=== PATIENT | female | born 1950 | race Caucasian/White ===

== ENCOUNTER 2017-01-10 19:40 | Emergency (ER) | payer OTHER ==
[~2017-01-10] VITALS: Ht 167.6 cm; Wt 112.9 kg
[~2017-01-10 19:40] MED LIST: COLC0.6T51 PO; COR12.5 PO; FELO10TA PO; FERR325T30 PO; HUM10VIA7 SQ; LEVO300T6 PO; LOSA100T11 PO; SERT100T PO; ZOLP10TA2 PO
--- NOTE | 2017-01-10 19:40 | NUR ---
Patient to ER bed 08 to gown for evaluation. Side rails up. Report given to carolina.
[2017-01-10 19:45] VITALS: BP 132/68; PULSE 78; RESP 16; TEMP 98.4; O2SAT 96
--- NOTE | 2017-01-10 19:56 | NUR ---
Pt in bed 8 with c/o low back pain Dr Chilel aware.
--- NOTE | 2017-01-10 20:19 | NUR ---
ER at bedside examining patient.
[2017-01-10] MEDS ORDERED: HYDROcodone/ACETAMIN 5-325 MG TAB (NORCO/ VICODIN) PO ONE (20:30)
--- NOTE | 2017-01-10 20:35 | NUR ---
Medicated for pain as per MD ordered tolerated well.
[2017-01-10 21:45] VITALS: BP 128/62; PULSE 72; RESP 16; TEMP 98.2; O2SAT 97
--- NOTE | 2017-01-10 21:45 | NUR ---
Patient given written and verbal discharge instructions and verbalizes understanding. ER MD discussed with patient the results and treatment provided. Patient in stable condition. ID arm band removed. Rx of Ibuprofen, and Jackson given. Patient educated on pain management and to follow up with PMD. Pain Scale 0/10. Opportunity for questions provided and answered.
== END 2017-01-10 21:45 | disposition home or self-care (01) ==
LOC: SED 19:40
DX: S22.32XA Fracture of one rib, left side, initial encounter for closed fracture (principal); I10 Essential (primary) hypertension; E11.9 Type 2 diabetes mellitus without complications; F32.9 Major depressive disorder, single episode, unspecified; Z88.1 Allergy status to other antibiotic agents; Z79.4 Long term (current) use of insulin; W10.9XXA Fall (on) (from) unspecified stairs and steps, initial encounter; Y93.89 Activity, other specified; Y99.8 Other external cause status; Y92.89 Other specified places as the place of occurrence of the external cause
CPT/HCPCS: 71100; 99284

== ENCOUNTER 2017-03-07 14:33 | Emergency (ER) | payer OTHER ==
[~2017-03-07] VITALS: Ht 167.6 cm; Wt 107.0 kg
[2017-03-07 14:37] VITALS: BP 143/72; PULSE 77; RESP 17; TEMP 97.7; O2SAT 97
--- NOTE | 2017-03-07 14:42 | NUR ---
Ambulatory to bed 3, placed in gown for evaluation
--- NOTE | 2017-03-07 14:45 | NUR ---
ER at bedside examining patient.
--- NOTE | 2017-03-07 14:46 | NUR ---
PT PRESENTS TO ED C/O GENERALIZED WEAKNESS AND ABNORMAL LAB RESULTS. PT H/O PERITONIAL DIALYSIS. PT HAS APPEARS WEAK.
[2017-03-07 15:26] LABS: BASOPHILS % (AUTO) 0.2 % (0.0-2.0); EOSINOPHILS # (AUTO) 0.6 K/uL (0.0-0.4); EOSINOPHILS % (AUTO) 5.7 % (0.0-4.0); HEMATOCRIT 25.8 % (36-48); HEMOGLOBIN 8.7 g/dL (12.0-16.0); LYMPHOCYTES # (AUTO) 1.2 K/uL (1.0-5.5); LYMPHOCYTES % (AUTO) 12.6 % (20.5-51.5); MEAN CORPUSCULAR HEMOGLOBIN 32 pg (27-31); MEAN CORPUSCULAR HGB CONC 34 % (32-36); MEAN CORPUSCULAR VOLUME 94 fL (79.0-98.0); MONOCYTES # (AUTO) 0.9 K/uL (0.0-1.0); MONOCYTES % (AUTO) 9.2 % (1.7-9.3); NEUTROPHILS # (AUTO) 7.1 K/uL (1.8-7.7); NEUTROPHILS % (AUTO) 72.3 % (40.0-70.0); PLATELET COUNT (AUTO) 226 K/uL (130-430); RED BLOOD CELL COUNT(AUTO) 2.74 MIL/uL (4.2-6.2); RED CELL DISTRIBUTION WIDTH 15.3 % (9.0-15.0); WHITE BLOOD COUNT (AUTO) 9.8 K/uL (4.8-10.8)
--- NOTE | 2017-03-07 15:30 | NUR ---
PT TOLERATED MEDICATION WELL.
[2017-03-07 15:35] LABS: PROTHROMBIN TIME 10.7 SECS (9.5-12.5)
[2017-03-07 15:37] LABS: CREATININE 10.14 mg/dL (0.55-1.30); POTASSIUM 2.8 mmol/L (3.5-5.1)
[2017-03-07 15:43] LABS: ALBUMIN 2.4 g/dL (3.4-4.8); TOTAL BILIRUBIN 0.4 mg/dL (0.0-1.0); TOTAL PROTEIN, SERUM 7.3 g/dL (6.4-8.3)
[2017-03-07] MEDS ORDERED: POTASSIUM CHLORIDE 20 MEQ TAB.PRT.SR PO ONE (15:45)
[2017-03-07] MEDS ORDERED: FLUC100T41 PO (16:39)
[2017-03-07] MEDS ORDERED: PRAV40TA PO (16:39)
[2017-03-07] MEDS ORDERED: CLOB50SO2 TP (16:39)
[2017-03-07] MEDS ORDERED: GABA-529 PO (16:39)
[2017-03-07] MEDS ORDERED: IBUP-1480 PO (16:39)
[2017-03-07] MEDS ORDERED: PRO40 PO (16:39)
[2017-03-07] MEDS ORDERED: FLUT16SP16 NS (16:39)
--- NOTE | 2017-03-07 16:39 | NUR ---
SPOKE W/ . ARRANGEMENT FOR OUTPATIENT FOLLOWUP AND TX.
--- NOTE | 2017-03-07 16:40 | NUR ---
Medication reconciliation completed with information provided by patient. Any prior medication reconciliation on file was reviewed and corrected.
[2017-03-07 17:20] VITALS: BP 140/76; PULSE 80; RESP 16; TEMP 97.7; O2SAT 97
--- NOTE | 2017-03-07 17:20 | NUR ---
Patient given written and verbal discharge instructions and verbalizes understanding. ER MD discussed with patient the results and treatment provided. Given copies of tests performed in ER. Patient in stable condition. ID arm band removed. IV catheter removed intact and dressing applied, no active bleeding. Rx of ZOFRAN,SUCRAFATE given. Patient educated on pain management and to follow up with PMD. Pain Scale 0. Opportunity for questions provided and answered.
== END 2017-03-07 17:20 | disposition home or self-care (01) ==
LOC: SED 14:33
DX: D64.9 Anemia, unspecified (principal); E11.9 Type 2 diabetes mellitus without complications; I10 Essential (primary) hypertension; K21.9 Gastro-esophageal reflux disease without esophagitis; F32.9 Major depressive disorder, single episode, unspecified; Z88.5 Allergy status to narcotic agent; Z88.1 Allergy status to other antibiotic agents; Z79.4 Long term (current) use of insulin
CPT/HCPCS: 36415; 71010; 80053; 83605; 85025; 85610-TC; 85730-TC; 86886; 86900; 86901; 87040-TC; 93005; 99285

== ENCOUNTER 2017-12-21 11:41 | Inpatient (IN) | payer OTHER ==
[~2017-12-21] VITALS: Ht 167.6 cm; Wt 84.4 kg
[~2017-12-21 11:41] MED LIST changes: +CLOB50SO2 TP; -FELO10TA PO; -FERR325T30 PO; +FLUC100T41 PO; +FLUT16SP16 NS; +GABA-529 PO; +IBUP-1480 PO; -LOSA100T11 PO; +PRAV40TA PO; +PRO40 PO
[2017-12-21 11:57] VITALS: BP_SYST 117
[2017-12-21] MEDS ORDERED: NACL 0.9% 1,000 ML IV SCH (11:57)
[2017-12-21] MEDS ORDERED: ONDANSETRON HCL 4 MG/2 ML VIAL IVP ONE (12:00)
[2017-12-21 12:32] LABS: BASOPHILS % (AUTO) 0.4 % (0.0-2.0); EOSINOPHILS % (AUTO) 0.2 % (0.0-4.0); HEMATOCRIT 35.7 % (36-48); HEMOGLOBIN 12.5 g/dL (12.0-16.0); LYMPHOCYTES # (AUTO) 0.4 K/uL (1.0-5.5); MEAN CORPUSCULAR HEMOGLOBIN 33 pg (27-31); MEAN CORPUSCULAR HGB CONC 35 % (32-36); MEAN CORPUSCULAR VOLUME 94 fL (79.0-98.0); MONOCYTES # (AUTO) 0.5 K/uL (0.0-1.0); MONOCYTES % (AUTO) 7.9 % (1.7-9.3); NEUTROPHILS % (AUTO) 84.5 % (40.0-70.0); PLATELET COUNT (AUTO) 144 K/uL (130-430); RED BLOOD CELL COUNT(AUTO) 3.79 MIL/uL (4.2-6.2); RED CELL DISTRIBUTION WIDTH 13.5 % (9.0-15.0); WHITE BLOOD COUNT (AUTO) 5.9 K/uL (4.8-10.8)
[2017-12-21 13:00] LABS: ALBUMIN 2.8 g/dL (3.4-4.8); CALCIUM 11.2 mg/dL (8.4-11.0); TOTAL BILIRUBIN 0.4 mg/dL (0.0-1.0)
[2017-12-21 13:02] LABS: POTASSIUM 2.7 mmol/L (3.5-5.1)
[2017-12-21 13:03] LABS: CREATININE 8.41 mg/dL (0.55-1.30)
[2017-12-21] MEDS ORDERED: POTASSIUM CHLORIDE 20 MEQ TAB.PRT.SR PO ONE (13:45)
[2017-12-21] MEDS ORDERED: VANCOMYCIN HCL 1000 MG/VIAL IV ONE (14:29)
[2017-12-21] MEDS ORDERED: VANCOMYCIN HCL 1,000 MG in NS 250 ML IV ONE (14:30)
[2017-12-21] MEDS ORDERED: POTA8TAB4 PO (14:50)
[2017-12-21] MEDS ORDERED: FOLI0.8T2 PO (14:50)
[2017-12-21 15:10] VITALS: BP_SYST 129
[2017-12-21 15:13] VITALS: BP_SYST 129
[2017-12-21 15:36] VITALS: BP_SYST 129
[2017-12-21] MEDS ORDERED: ONDANSETRON HCL 4 MG/2 ML VIAL IVP PRN (15:45)
[2017-12-21] MEDS ORDERED: DEXTROSE 50% JECT 50 ML DISP.SYRIN IVP PRN (15:45)
[2017-12-21] MEDS ORDERED: INSULIN REGULAR, HUMAN 100 UNITS/ML, 10 ML VIAL (novoLIN R) SUBCUT PRN (15:45)
[2017-12-21] MEDS ORDERED: cloNIDine HCL 0.1 MG TABLET PO PRN (16:00)
[2017-12-21] MEDS ORDERED: MECLIZINE HCL 25 MG TABLET (ANITVERT) PO ONE (16:00)
[2017-12-21] MEDS ORDERED: ACETAMINOPHEN 325 MG TABLET PO PRN (16:00)
[2017-12-21 16:29] LABS: BILIRUBIN,URINE NEGATIVE (NEGATIVE); BLOOD, URINE 2+ (NEGATIVE); CLARITY/URINE CLOUDY (CLEAR); COLOR,URINE YELLOW (YELLOW); GLUCOSE,URINE TRACE (NEGATIVE); KETONES,URINE TRACE (NEGATIVE); LEUKOCYTE ESTERASE ,URINE TRACE (NEGATIVE); NITRITE, URINE NEGATIVE (NEGATIVE); PH,URINE 5.5 (5.0-8.0); PROTEIN URINE 1+ (NEGATIVE); UROBILINOGEN,URINE 0.2 (0.2-1.0)
[2017-12-21 16:44] LABS: BACTERIA,URINE MODERATE /HPF (None Seen); YEAST,URINE Moderate /HPF (None Seen)
[2017-12-21] MEDS: NACL 0.9% 1,000 ML IV SCH (17:34)
[2017-12-21 19:30] VITALS: BP_SYST 104
[2017-12-21] MEDS: MECLIZINE HCL 25 MG TABLET (ANITVERT) PO SCH (20:24)
[2017-12-22 00:29] VITALS: BP_SYST 119
[2017-12-22 06:08] LABS: BASOPHILS % (AUTO) 0.5 % (0.0-2.0); EOSINOPHILS % (AUTO) 0.1 % (0.0-4.0); HEMATOCRIT 31.7 % (36-48); HEMOGLOBIN 10.8 g/dL (12.0-16.0); LYMPHOCYTES # (AUTO) 0.5 K/uL (1.0-5.5); LYMPHOCYTES % (AUTO) 5.4 % (20.5-51.5); MEAN CORPUSCULAR HEMOGLOBIN 33 pg (27-31); MEAN CORPUSCULAR HGB CONC 34 % (32-36); MEAN CORPUSCULAR VOLUME 95 fL (79.0-98.0); MONOCYTES # (AUTO) 0.4 K/uL (0.0-1.0); MONOCYTES % (AUTO) 4.2 % (1.7-9.3); NEUTROPHILS # (AUTO) 7.6 K/uL (1.8-7.7); NEUTROPHILS % (AUTO) 89.8 % (40.0-70.0); PLATELET COUNT (AUTO) 119 K/uL (130-430); RED BLOOD CELL COUNT(AUTO) 3.33 MIL/uL (4.2-6.2); RED CELL DISTRIBUTION WIDTH 13.4 % (9.0-15.0); WHITE BLOOD COUNT (AUTO) 8.5 K/uL (4.8-10.8)
[2017-12-22] MEDS: LEVOTHYROXINE SODIUM 0.1 MG TABLET PO SCH (06:31)
[2017-12-22 06:43] LABS: THYROID STIMULATING HORMONE 0.1 uIu/mL (0.34-4.82)
[2017-12-22 08:00] VITALS: BP_SYST 91
[2017-12-22] MEDS: FOLIC ACID 1 MG TABLET PO SCH (08:25)
[2017-12-22] MEDS: PANTOPRAZOLE SODIUM 40 MG TAB PO SCH (08:25)
[2017-12-22] MEDS: MECLIZINE HCL 25 MG TABLET (ANITVERT) PO SCH ×3 (08:26→20:14)
[2017-12-22] MEDS: NACL 0.9% 1,000 ML IV SCH (08:29)
[2017-12-22 10:55] LABS: CALCIUM 10.2 mg/dL (8.4-11.0); CREATININE 7.56 mg/dL (0.55-1.30)
[2017-12-22 11:00] LABS: ALBUMIN 2.4 g/dL (3.4-4.8); TOTAL BILIRUBIN 0.3 mg/dL (0.0-1.0)
[2017-12-22] MEDS ORDERED: POTASSIUM CHLORIDE 20 MEQ TAB.PRT.SR PO ONE (12:00)
[2017-12-22 12:18] VITALS: BP_SYST 118
[2017-12-22] MEDS ORDERED: LEVOFLOXACIN 250 MG/D5W 50 ML IV ONE (13:30)
[2017-12-22 16:08] VITALS: BP_SYST 93
[2017-12-22 20:10] VITALS: BP_SYST 108
[2017-12-22 22:43] VITALS: BP_SYST 108
[2017-12-22] MEDS ORDERED: ZOLPIDEM TARTRATE 5 MG TABLET PO PRN (22:45)
[2017-12-23 00:44] VITALS: BP_SYST 106
[2017-12-23] MEDS: LEVOTHYROXINE SODIUM 0.1 MG TABLET PO SCH (06:13)
[2017-12-23 07:37] VITALS: BP_SYST 123
[2017-12-23] MEDS: PANTOPRAZOLE SODIUM 40 MG TAB PO SCH (08:13)
[2017-12-23] MEDS: FOLIC ACID 1 MG TABLET PO SCH (08:13)
[2017-12-23] MEDS: MECLIZINE HCL 25 MG TABLET (ANITVERT) PO SCH ×2 (08:13→14:47)
[2017-12-23] MEDS ORDERED: LEVOFLOXACIN 250 MG/D5W 50 ML IV SCH (09:00)
[2017-12-23 11:09] LABS: BASOPHILS % (AUTO) 0.7 % (0.0-2.0); EOSINOPHILS # (AUTO) 0.1 K/uL (0.0-0.4); EOSINOPHILS % (AUTO) 1.2 % (0.0-4.0); HEMATOCRIT 32.2 % (36-48); HEMOGLOBIN 10.9 g/dL (12.0-16.0); LYMPHOCYTES # (AUTO) 0.7 K/uL (1.0-5.5); LYMPHOCYTES % (AUTO) 13.3 % (20.5-51.5); MEAN CORPUSCULAR HEMOGLOBIN 32 pg (27-31); MEAN CORPUSCULAR HGB CONC 34 % (32-36); MEAN CORPUSCULAR VOLUME 95 fL (79.0-98.0); MONOCYTES # (AUTO) 0.3 K/uL (0.0-1.0); NEUTROPHILS # (AUTO) 4.2 K/uL (1.8-7.7); NEUTROPHILS % (AUTO) 78.8 % (40.0-70.0); PLATELET COUNT (AUTO) 121 K/uL (130-430); RED CELL DISTRIBUTION WIDTH 13.2 % (9.0-15.0); WHITE BLOOD COUNT (AUTO) 5.3 K/uL (4.8-10.8)
[2017-12-23 11:19] LABS: ALBUMIN 2.3 g/dL (3.4-4.8); CALCIUM 10.6 mg/dL (8.4-11.0); CREATININE 6.52 mg/dL (0.55-1.30); TOTAL BILIRUBIN 0.4 mg/dL (0.0-1.0)
[2017-12-23 11:26] LABS: POTASSIUM 2.9 mmol/L (3.5-5.1)
[2017-12-23] MEDS ORDERED: POTASSIUM CHLORIDE 20 MEQ TAB.PRT.SR PO ONE (11:45)
[2017-12-23 14:30] VITALS: BP_SYST 108
[2017-12-23] MEDS ORDERED: MECL12.584 PO (14:38)
[2017-12-23] MEDS ORDERED: MIDO5TAB20 PO (14:39)
[2017-12-23 16:12] VITALS: BP_SYST 95
== END 2017-12-23 16:25 | disposition home or self-care (01) | DRG 689 ==
LOC: SED 11:41 → STU 15:10 → SMU 12-23 11:54
PROVIDERS: ADMIT Internal Medicine Hospice and Palliative Medicine; ATTEND Internal Medicine Hospice and Palliative Medicine
PROC: 3E1M39Z Irrigation of Peritoneal Cavity using Dialysate, Percutaneous Approach (ICD-10-PCS; 2017-12-21)
PROC: 5A09357 Assistance with Respiratory Ventilation, Less than 24 Consecutive Hours, Continuous Positive Airway Pressure (ICD-10-PCS; principal; 2017-12-22)
DX: N39.0 Urinary tract infection, site not specified (principal); N18.6 End stage renal disease; C90.00 Multiple myeloma not having achieved remission; E11.22 Type 2 diabetes mellitus with diabetic chronic kidney disease; I12.0 Hypertensive chronic kidney disease with stage 5 chronic kidney disease or end stage renal disease; E87.6 Hypokalemia; R42 Dizziness and giddiness; F32.9 Major depressive disorder, single episode, unspecified; E03.9 Hypothyroidism, unspecified; K21.9 Gastro-esophageal reflux disease without esophagitis; R62.7 Adult failure to thrive; Z99.2 Dependence on renal dialysis; Z88.1 Allergy status to other antibiotic agents; Z88.6 Allergy status to analgesic agent; Z79.899 Other long term (current) drug therapy; Z79.4 Long term (current) use of insulin
CPT/HCPCS: 36415; 70450-TC; 71045; 80053; 81000-TC; 83605; 83735-TC; 83880; 84100-TC; 84443-TC; 84484; 85025; 85610-TC; 85730-TC; 87040-TC; 87086; 90935; 90937; 93005; 94660; 96361; 96365; 96366; 96375; 99285; J1815; J1956; J2405; J3370; J7050; J8597

== ENCOUNTER 2018-04-05 14:08 | Inpatient (IN) | payer OTHER ==
[~2018-04-05] VITALS: Ht 167.6 cm; Wt 83.1 kg
[2018-04-05 14:08] VITALS: BP_SYST 150
[~2018-04-05 14:08] MED LIST changes: -CLOB50SO2 TP; -COLC0.6T51 PO; -COR12.5 PO; -FLUC100T41 PO; -FLUT16SP16 NS; -GABA-529 PO; -HUM10VIA7 SQ; -IBUP-1480 PO; -LEVO300T6 PO; +MECL12.584 PO; +MIDO5TAB20 PO; -PRAV40TA PO; -PRO40 PO; -SERT100T PO; -ZOLP10TA2 PO
[2018-04-05 14:46] LABS: EOSINOPHILS # (AUTO) 0.1 K/uL (0.0-0.4); HEMATOCRIT 32.3 % (36-48); HEMOGLOBIN 11.1 g/dL (12.0-16.0); MONOCYTES # (AUTO) 0.8 K/uL (0.0-1.0)
[2018-04-05 14:49] LABS: BASOPHILS # (AUTO) 0.1 K/uL (0.0-0.2); BASOPHILS % (AUTO) 0.7 % (0.0-2.0); EOSINOPHILS % (AUTO) 0.9 % (0.0-4.0); LYMPHOCYTES # (AUTO) 0.7 K/uL (1.0-5.5); LYMPHOCYTES % (AUTO) 8.9 % (20.5-51.5); MEAN CORPUSCULAR HEMOGLOBIN 34 pg (27-31); MEAN CORPUSCULAR HGB CONC 35 % (32-36); MEAN CORPUSCULAR VOLUME 99 fL (79.0-98.0); MONOCYTES % (AUTO) 10.1 % (1.7-9.3); NEUTROPHILS # (AUTO) 6.4 K/uL (1.8-7.7); NEUTROPHILS % (AUTO) 79.4 % (40.0-70.0); PLATELET COUNT (AUTO) 235 K/uL (130-430); RED BLOOD CELL COUNT(AUTO) 3.27 MIL/uL (4.2-6.2); RED CELL DISTRIBUTION WIDTH 18.5 % (9.0-15.0); WHITE BLOOD COUNT (AUTO) 8.1 K/uL (4.8-10.8)
[2018-04-05 14:58] LABS: CALCIUM 10.2 mg/dL (8.4-11.0); CREATININE 4.32 mg/dL (0.55-1.30); INR 1.2 (0.8-1.2); POTASSIUM 3.4 mmol/L (3.5-5.1); PROTHROMBIN TIME 12.1 SECS (9.5-12.5)
[2018-04-05 15:03] LABS: TOTAL BILIRUBIN 1.5 mg/dL (0.0-1.0)
[2018-04-05 16:08] VITALS: BP_SYST 154
[2018-04-05 16:10] VITALS: BP_SYST 154
[2018-04-05] MEDS ORDERED: SERT50TA PO (16:57)
[2018-04-05] MEDS ORDERED: DEC4 PO (16:57)
[2018-04-05] MEDS ORDERED: SEVE800T8 PO (16:57)
[2018-04-05] MEDS ORDERED: LEVO137T20 PO (16:57)
[2018-04-05] MEDS ORDERED: POTA20TA83 PO (16:57)
[2018-04-05] MEDS ORDERED: ZOLP10TA2 PO (16:57)
[2018-04-05] MEDS ORDERED: FOLI0.8T2 PO (16:57)
[2018-04-05] MEDS ORDERED: INSULIN REGULAR, HUMAN 100 UNITS/ML, 10 ML VIAL (novoLIN R) SUBCUT PRN (17:30)
[2018-04-05] MEDS ORDERED: DEXTROSE 50% JECT 50 ML DISP.SYRIN IVP PRN (17:30)
[2018-04-05] MEDS ORDERED: METOCLOPRAMIDE HCL 10 MG/2 ML VIAL IVP PRN (17:45)
[2018-04-05] MEDS ORDERED: PANTOPRAZOLE SODIUM 40 MG/VIAL (PROTONIX) IVP ONE (18:00)
[2018-04-05 20:00] VITALS: BP_SYST 150
[2018-04-05] MEDS: MIDODRINE HCL 5 MG TABLET (PROAMATINE) PO SCH (21:00)
[2018-04-05] MEDS ORDERED: ZOLPIDEM TARTRATE 5 MG TABLET PO PRN (21:00)
[2018-04-05] MEDS ORDERED: MORPHINE 2 MG/ML INJ. SYRINGE IVP PRN (22:15)
[2018-04-05] MEDS: MORPHINE 4 MG/ML INJ. SYRINGE IVP PRN (22:36)
[2018-04-06 01:05] VITALS: BP_SYST 149
[2018-04-06 07:00] LABS: BASOPHILS % (AUTO) 0.6 % (0.0-2.0); EOSINOPHILS # (AUTO) 0.2 K/uL (0.0-0.4); EOSINOPHILS % (AUTO) 2.3 % (0.0-4.0); HEMATOCRIT 29.8 % (36-48); HEMOGLOBIN 10.2 g/dL (12.0-16.0); LYMPHOCYTES # (AUTO) 1.4 K/uL (1.0-5.5); LYMPHOCYTES % (AUTO) 18.8 % (20.5-51.5); MEAN CORPUSCULAR HEMOGLOBIN 34 pg (27-31); MEAN CORPUSCULAR HGB CONC 34 % (32-36); MEAN CORPUSCULAR VOLUME 100 fL (79.0-98.0); MONOCYTES # (AUTO) 0.9 K/uL (0.0-1.0); NEUTROPHILS # (AUTO) 4.9 K/uL (1.8-7.7); NEUTROPHILS % (AUTO) 66.3 % (40.0-70.0); PLATELET COUNT (AUTO) 215 K/uL (130-430); RED BLOOD CELL COUNT(AUTO) 2.99 MIL/uL (4.2-6.2); RED CELL DISTRIBUTION WIDTH 19.2 % (9.0-15.0); WHITE BLOOD COUNT (AUTO) 7.4 K/uL (4.8-10.8)
[2018-04-06 07:19] LABS: ALBUMIN 1.6 g/dL (3.4-4.8); CALCIUM 9.9 mg/dL (8.4-11.0); CREATININE 4.7 mg/dL (0.55-1.30); TOTAL BILIRUBIN 1.3 mg/dL (0.0-1.0)
[2018-04-06 07:37] LABS: POTASSIUM 2.9 mmol/L (3.5-5.1)
[2018-04-06 08:26] VITALS: BP_SYST 144
[2018-04-06] MEDS: POTASSIUM CHLORIDE 20 MEQ TAB.PRT.SR PO SCH ×3 (08:34→12:27)
[2018-04-06] MEDS: NEPHROVITE, (FOLIC ACID/VITAMIN B COMP W-C 1 TAB) PO SCH (08:34)
[2018-04-06] MEDS: SERTRALINE HCL 50 MG TABLET PO SCH (08:34)
[2018-04-06] MEDS: PANTOPRAZOLE SODIUM 40 MG/VIAL (PROTONIX) IVP SCH ×2 (08:35→20:46)
[2018-04-06] MEDS: MIDODRINE HCL 5 MG TABLET (PROAMATINE) PO SCH ×2 (08:40→20:47)
[2018-04-06] MEDS: MORPHINE 4 MG/ML INJ. SYRINGE IVP PRN ×2 (09:50→22:51)
[2018-04-06] MEDS ORDERED: LEVOTHYROXINE SODIUM 0.075 MG TABLET PO ONE (11:15)
[2018-04-06 12:30] VITALS: BP_SYST 138
[2018-04-06 16:04] VITALS: BP_SYST 144
[2018-04-06] MEDS ORDERED: DIATR MEGLU/DIATRIZ SOD 30 ML SOLUTION PO ONE (18:11)
[2018-04-06 20:00] VITALS: BP_SYST 141
[2018-04-07 00:47] VITALS: BP_SYST 143
[2018-04-07] MEDS: LEVOTHYROXINE SODIUM 0.075 MG TABLET PO SCH (06:26)
[2018-04-07 07:11] LABS: ALBUMIN 1.5 g/dL (3.4-4.8); BILIRUBIN,DIRECT 0.6 mg/dL (0.0-0.3); TOTAL BILIRUBIN 1.1 mg/dL (0.0-1.0)
[2018-04-07 07:44] VITALS: BP_SYST 136
[2018-04-07] MEDS: NEPHROVITE, (FOLIC ACID/VITAMIN B COMP W-C 1 TAB) PO SCH (08:00)
[2018-04-07] MEDS: POTASSIUM CHLORIDE 20 MEQ TAB.PRT.SR PO SCH (08:00)
[2018-04-07] MEDS: SERTRALINE HCL 50 MG TABLET PO SCH (08:00)
[2018-04-07] MEDS: PANTOPRAZOLE SODIUM 40 MG/VIAL (PROTONIX) IVP SCH ×2 (08:00→20:57)
[2018-04-07] MEDS: MIDODRINE HCL 5 MG TABLET (PROAMATINE) PO SCH ×2 (09:00→21:00)
[2018-04-07] MEDS ORDERED: LIPASE/PROTEASE/AMYLASE 1 CAP PO ONE (09:45)
[2018-04-07] MEDS: LIPASE/PROTEASE/AMYLASE 1 CAP PO SCH ×2 (12:00→16:40)
[2018-04-07 12:14] VITALS: BP_SYST 136
[2018-04-07] MEDS: MORPHINE 4 MG/ML INJ. SYRINGE IVP PRN ×2 (15:16→23:20)
[2018-04-07 16:47] VITALS: BP_SYST 133
[2018-04-07] MEDS ORDERED: chlordiazePOXIDE HCL 25 MG CAPSULE PO SCH (17:00)
[2018-04-07 19:05] VITALS: BP_SYST 124
[2018-04-08 01:07] VITALS: BP_SYST 142
[2018-04-08] MEDS: LEVOTHYROXINE SODIUM 0.075 MG TABLET PO SCH (06:23)
[2018-04-08] MEDS: fentaNYL CITRATE/PF 100 MCG/2 ML AMP ONE ×2 (06:54→07:25)
[2018-04-08] MEDS ORDERED: SIMETHICONE 40 MG/0.6 ML ML ONE (06:54)
[2018-04-08] MEDS: MIDAZOLAM HCL 5 MG/5 ML VIAL ONE ×4 (06:54→07:32)
[2018-04-08 07:10] LABS: INR 1.2 (0.8-1.2); PROTHROMBIN TIME 12.2 SECS (9.5-12.5)
[2018-04-08] MEDS ORDERED: METOCLOPRAMIDE HCL 10 MG/2 ML VIAL IVP ONE (07:45)
[2018-04-08] MEDS: LIPASE/PROTEASE/AMYLASE 1 CAP PO SCH ×4 (08:00→17:47)
[2018-04-08 08:40] VITALS: BP_SYST 146
[2018-04-08] MEDS: POTASSIUM CHLORIDE 20 MEQ TAB.PRT.SR PO SCH ×2 (09:00→09:03)
[2018-04-08] MEDS: NEPHROVITE, (FOLIC ACID/VITAMIN B COMP W-C 1 TAB) PO SCH ×2 (09:00→09:03)
[2018-04-08] MEDS: MIDODRINE HCL 5 MG TABLET (PROAMATINE) PO SCH ×3 (09:00→21:00)
[2018-04-08] MEDS: SERTRALINE HCL 50 MG TABLET PO SCH ×2 (09:00→09:03)
[2018-04-08] MEDS: PANTOPRAZOLE SODIUM 40 MG/VIAL (PROTONIX) IVP SCH ×2 (09:03→21:44)
[2018-04-08] MEDS ORDERED: NYSTATIN 500,000 UNITS/5 ML UDC PO ONE (10:00)
[2018-04-08 12:02] VITALS: BP_SYST 139
[2018-04-08] MEDS ORDERED: LIDOCAINE 1%, 20 ML MDV 0 ML ONE (13:02)
[2018-04-08] MEDS: NYSTATIN 500,000 UNITS/5 ML UDC PO SCH ×3 (15:26→23:34)
[2018-04-08] MEDS: METOCLOPRAMIDE HCL 10 MG/2 ML VIAL IVP SCH ×2 (15:29→21:44)
[2018-04-08 16:54] VITALS: BP_SYST 132
[2018-04-08] MEDS ORDERED: SUCRALFATE 1 GM/10 ML UDC GT SCH (17:00)
[2018-04-08] MEDS ORDERED: COMMUNICATION ORDER XX ONE (17:30)
[2018-04-08 19:10] VITALS: BP_SYST 150
[2018-04-09 00:41] VITALS: BP_SYST 137
[2018-04-09] MEDS: MORPHINE 4 MG/ML INJ. SYRINGE IVP PRN ×2 (03:14→21:30)
[2018-04-09] MEDS: LEVOTHYROXINE SODIUM 0.075 MG TABLET PO SCH (06:06)
[2018-04-09] MEDS: SUCRALFATE 1 GM TABLET PO SCH ×2 (06:06→17:39)
[2018-04-09] MEDS: NYSTATIN 500,000 UNITS/5 ML UDC PO SCH ×4 (06:06→23:30)
[2018-04-09] MEDS: METOCLOPRAMIDE HCL 10 MG/2 ML VIAL IVP SCH ×3 (06:06→21:29)
[2018-04-09] MEDS: NEPHROVITE, (FOLIC ACID/VITAMIN B COMP W-C 1 TAB) PO SCH (08:13)
[2018-04-09] MEDS: MIDODRINE HCL 5 MG TABLET (PROAMATINE) PO SCH ×2 (08:13→21:00)
[2018-04-09] MEDS: PANTOPRAZOLE SODIUM 40 MG/VIAL (PROTONIX) IVP SCH ×2 (08:13→21:29)
[2018-04-09] MEDS: SERTRALINE HCL 50 MG TABLET PO SCH (08:13)
[2018-04-09] MEDS: POTASSIUM CHLORIDE 20 MEQ TAB.PRT.SR PO SCH (08:13)
[2018-04-09] MEDS: LIPASE/PROTEASE/AMYLASE 1 CAP PO SCH ×3 (08:13→17:39)
[2018-04-09 08:25] VITALS: BP_SYST 136
[2018-04-09 12:16] VITALS: BP_SYST 137
[2018-04-09 16:30] VITALS: BP_SYST 142
[2018-04-09] MEDS ORDERED: COMMUNICATION ORDER XX ONE ×2 (18:00→18:30)
[2018-04-09] MEDS ORDERED: HEPARIN SODIUM,PORCINE 5000 UNITS/ML VIAL MC ONE (19:00)
[2018-04-09 19:15] VITALS: BP_SYST 123
[2018-04-10 01:08] VITALS: BP_SYST 139
[2018-04-10] MEDS: NYSTATIN 500,000 UNITS/5 ML UDC PO SCH ×2 (06:15→11:53)
[2018-04-10] MEDS: SUCRALFATE 1 GM TABLET PO SCH (06:15)
[2018-04-10] MEDS: LEVOTHYROXINE SODIUM 0.075 MG TABLET PO SCH (06:15)
[2018-04-10] MEDS: METOCLOPRAMIDE HCL 10 MG/2 ML VIAL IVP SCH (06:16)
[2018-04-10 08:00] VITALS: BP_SYST 135
[2018-04-10] MEDS: LIPASE/PROTEASE/AMYLASE 1 CAP PO SCH ×2 (08:45→11:53)
[2018-04-10] MEDS: PANTOPRAZOLE SODIUM 40 MG/VIAL (PROTONIX) IVP SCH (08:45)
[2018-04-10] MEDS: POTASSIUM CHLORIDE 20 MEQ TAB.PRT.SR PO SCH (08:45)
[2018-04-10] MEDS: MIDODRINE HCL 5 MG TABLET (PROAMATINE) PO SCH (08:46)
[2018-04-10] MEDS: SERTRALINE HCL 50 MG TABLET PO SCH (08:46)
[2018-04-10] MEDS: NEPHROVITE, (FOLIC ACID/VITAMIN B COMP W-C 1 TAB) PO SCH (08:46)
[2018-04-10 12:00] VITALS: BP_SYST 122
[2018-04-10 13:48] VITALS: BP_SYST 122
== END 2018-04-10 13:20 | DRG 380 ==
LOC: SED 14:08 → STU 15:34
PROVIDERS: ADMIT Internal Medicine Hospice and Palliative Medicine; ATTEND Internal Medicine Hospice and Palliative Medicine
PROC: 5A1D70Z Performance of Urinary Filtration, Intermittent, Less than 6 Hours Per Day (ICD-10-PCS; 2018-04-05)
PROC: 5A1D70Z Performance of Urinary Filtration, Intermittent, Less than 6 Hours Per Day (ICD-10-PCS; 2018-04-07)
PROC: 0W9F3ZZ Drainage of Abdominal Wall, Percutaneous Approach (ICD-10-PCS; 2018-04-08)
PROC: BW40ZZZ Ultrasonography of Abdomen (ICD-10-PCS; 2018-04-08)
PROC: 5A1D70Z Performance of Urinary Filtration, Intermittent, Less than 6 Hours Per Day (ICD-10-PCS; 2018-04-08)
PROC: 0DD48ZX Extraction of Esophagogastric Junction, Via Natural or Artificial Opening Endoscopic, Diagnostic (ICD-10-PCS; 2018-04-08)
PROC: 0DB78ZX Excision of Stomach, Pylorus, Via Natural or Artificial Opening Endoscopic, Diagnostic (ICD-10-PCS; principal; 2018-04-08 07:15)
DX: K22.10 Ulcer of esophagus without bleeding (principal); N18.6 End stage renal disease; I95.9 Hypotension, unspecified; C90.00 Multiple myeloma not having achieved remission; E11.22 Type 2 diabetes mellitus with diabetic chronic kidney disease; K31.84 Gastroparesis; I12.0 Hypertensive chronic kidney disease with stage 5 chronic kidney disease or end stage renal disease; E11.43 Type 2 diabetes mellitus with diabetic autonomic (poly)neuropathy; E83.52 Hypercalcemia; M79.81 Nontraumatic hematoma of soft tissue; R19.00 Intra-abdominal and pelvic swelling, mass and lump, unspecified site; K29.70 Gastritis, unspecified, without bleeding; K31.7 Polyp of stomach and duodenum; R63.4 Abnormal weight loss; K21.9 Gastro-esophageal reflux disease without esophagitis; F32.9 Major depressive disorder, single episode, unspecified; D64.9 Anemia, unspecified; K59.00 Constipation, unspecified; Z99.2 Dependence on renal dialysis; Z88.8 Allergy status to other drugs, medicaments and biological substances; Z68.29 Body mass index [BMI] 29.0-29.9, adult; Z79.899 Other long term (current) drug therapy; Z90.49 Acquired absence of other specified parts of digestive tract; Z87.891 Personal history of nicotine dependence; Z92.21 Personal history of antineoplastic chemotherapy
CPT/HCPCS: 36415; 43239; 71045; 76942-TC; 78264-TC; 80053; 80076; 82962; 83605; 83690-TC; 84484; 85025; 85610-TC; 87040-TC; 87070-TC; 87081; 87186-TC; 88162; 88305; 88312; 88313; 90935; 90937; 93005; 97110-GP; 97116-GP; 97530-GP; 99285; A9541; C9113; J1644; J1815; J2001; J2250; J2270; J2765; J3010; J7030; Q9964

== ENCOUNTER 2018-05-21 07:25 | Day surgery (SDC) | payer OTHER ==
[~2018-05-21] VITALS: Ht 167.6 cm; Wt 83.9 kg
[~2018-05-21 07:25] MED LIST changes: +FOLI0.8T2 PO; -MECL12.584 PO; +POTA20TA83 PO; +SERT50TA PO; +ZOLP10TA2 PO
[2018-05-21] MEDS ORDERED: SIMETHICONE 40 MG/0.6 ML ML ONE (07:45)
[2018-05-21] MEDS ORDERED: MEPERIDINE HCL/PF 100 MG/ML AMP ONE (07:45)
[2018-05-21] MEDS: MIDAZOLAM HCL 5 MG/5 ML VIAL ONE ×4 (10:19→10:25)
[2018-05-21] MEDS: fentaNYL CITRATE/PF 100 MCG/2 ML AMP ONE ×3 (10:19→10:23)
[2018-05-21 10:43] VITALS: BP_SYST 142
== END 2018-05-21 11:35 | disposition home or self-care (01) ==
LOC: SDS 07:25 → SMU 07:25 → SDS 11:35
PROVIDERS: ATTEND Internal Medicine Gastroenterology
DX: C7A.092 Malignant carcinoid tumor of the stomach (principal); K21.9 Gastro-esophageal reflux disease without esophagitis; K31.7 Polyp of stomach and duodenum; K44.9 Diaphragmatic hernia without obstruction or gangrene; Z79.899 Other long term (current) drug therapy; Z98.890 Other specified postprocedural states; I12.0 Hypertensive chronic kidney disease with stage 5 chronic kidney disease or end stage renal disease; E11.22 Type 2 diabetes mellitus with diabetic chronic kidney disease; N18.6 End stage renal disease; Z99.2 Dependence on renal dialysis; E78.5 Hyperlipidemia, unspecified; F32.9 Major depressive disorder, single episode, unspecified; C90.00 Multiple myeloma not having achieved remission
CPT/HCPCS: 43251; 88305; 88312; 88313; 88341; 88342; 88361; J2250; J3010; J2175